=== PATIENT | male | born 2000 | race Caucasian/White ===

== ENCOUNTER 2021-05-05 12:45 | Emergency (ER) | payer OTHER ==
[~2021-05-05] VITALS: Ht 177.8 cm; Wt 129.3 kg
[2021-05-05 13:56] LABS: HEMOGLOBIN 16.5 gm/dl (14.0-17.5); RED BLOOD COUNT 5.73 M/UL (4.20-5.50); WHITE BLOOD COUNT 5.4 K/UL (4.5-11.0)
[2021-05-05 14:24] LABS: BUN/CREATININE RATIO 15 (0-10)
== END 2021-05-05 18:20 | disposition home or self-care (01) ==
LOC: ER1 12:45 → EROP 12:45 → EDSTATUS 13:24 → ER1 18:20
PROVIDERS: Emergency Medicine
DX: U07.1 COVID-19 (principal); Z23 Encounter for immunization
CPT/HCPCS: 71045; 80053; 82550; 82553; 83874; 84484; 85025; 85379; 93005; 99284; M0243